=== PATIENT | female | born 1985 | race Caucasian/White ===

== ENCOUNTER 2016-11-30 18:15 | Emergency (ER) | payer MEDICAID ==
[~2016-11-30] VITALS: Ht 157.5 cm; Wt 86.0 kg
[2016-11-30] MEDS ORDERED: LIDOCAINE HCL 1% 20ML VIAL (Pyxis) INJ MC ONE (23:15)
[2016-11-30] MEDS ORDERED: HYDROCODONE/APAP 7.5/325MG 1 TAB TABLET PO ONE (23:15)
[2016-11-30] MEDS ORDERED: TETANUS, DIPHTHERIA, PERTUSSIS VAC/PF 0.5ML (>7YR OLD) IM ONE (23:15)
[2016-12-01] MEDS ORDERED: CEFAZOLIN 1000MG PREMIX 50 ML IV NR (01:00)
[2016-12-01 04:00] VITALS: BP 147/93
== END 2016-12-01 03:36 | disposition short-term general hospital (02) ==
LOC: ER 18:17
DX: S62.617B Displaced fracture of proximal phalanx of left little finger, initial encounter for open fracture (principal); S62.627B Displaced fracture of middle phalanx of left little finger, initial encounter for open fracture; W54.0XXA Bitten by dog, initial encounter; Y93.89 Activity, other specified; Y92.89 Other specified places as the place of occurrence of the external cause; Y99.8 Other external cause status
CPT/HCPCS: 73130; 90471; 90715; 96365; 99285; J0690; J3490; X7700; Z7610; 99284